=== PATIENT | female | born 1945 | race Caucasian/White ===

== ENCOUNTER 2020-04-23 12:45 | Emergency (ER) | payer OTHER ==
[~2020-04-23] VITALS: Ht 157.5 cm; Wt 54.4 kg
[~2020-04-23 12:45] MED LIST: CIPRO500 MG PO; COZAAR 25 MG TA25 M1 PO; ERYTHROMYCIN E3.5 G1 OPHTHALMIC; FERROUS SULFAT325 MG PO; FLAGYL500 MG PO; HYDROCODONE-APA1 TA1 PO; LISINOPRIL10 MG PO; TETRACAINE HCL OPHTHALMIC
[2020-04-23] MEDS ORDERED: TOPROL XL25 MG PO (13:06)
[2020-04-23] MEDS ORDERED: ZESTRIL20 MG PO (13:07)
[2020-04-23 13:22] LABS: URINE BILIRUBIN NEGATIVE (Negative); URINE BLOOD NEGATIVE (Negative); URINE CLARITY CLEAR; URINE COLOR YELLOW; URINE GLUCOSE-RANDOM 1+ (Negative); URINE KETONES TRACE (Negative); URINE LEUKOCYTES-REFLEX TRACE (Negative); URINE PROTEIN 2+ (Negative)
[2020-04-23 13:27] LABS: URINE NITRITE-REFLEX POSITIVE (Negative)
[2020-04-23 13:37] LABS: HEMOGLOBIN 12.9 gm/dL (12.0-15.0); MCH 33.4 pg (26.0-34.0); MCV 98.3 fL (80.0-100.0); MPV 7.7 fl. (7.2-11.1); NUCLEATED RBCS 0 /100WBC; PLATELET COUNT* 246 thou/uL (150-400); RBC 3.86 mil/uL (4.20-5.00); RDW-CV 13.2 % (10.5-14.5); WBC 10.9 thou/uL (4.0-11.0)
[2020-04-23 13:39] LABS: AMORPHOUS URATES Few /LPF (None Seen); BACTERIA-REFLEX 1-9 Few /HPF (None Seen); FINE GRANULAR CASTS 0-3 Few /LPF (None Seen); SQUAMOUS >10 Many /LPF (0-3); URINE RBC 0-2 Rare /HPF (0-2); URINE WBC-REFLEX 0-5 Rare /HPF (0-5)
[2020-04-23 13:43] LABS: CALCIUM 9.6 mg/dL (8.5-10.1); CREATININE 1.3 mg/dL (0.6-1.3); POTASSIUM 4.3 mmol/L (3.5-5.1)
[2020-04-23 13:47] LABS: TOTAL BILIRUBIN 0.5 mg/dL (<0.1-1.0)
[2020-04-23 14:16] LABS: ABSOLUTE EOSINOPHILS 0.2 thou/uL (0.0-0.7); ABSOLUTE LYMPHOCYTES 0.1 thou/uL (0.8-5.3); ABSOLUTE MONOCYTES 0.3 thou/uL (0.0-1.2); ABSOLUTE NEUTROPHILS 10.2 thou/uL (1.6-8.1); PLATELET ESTIMATE ADEQUATE
[2020-04-23] MEDS ORDERED: PREDNISONE 20 M20 MG PO (15:00)
[2020-04-23] MEDS ORDERED: HYDROCODON-ACE1 EAC7 PO (15:00)
[2020-04-23] MEDS ORDERED: KEFLEX500 M1 PO (15:00)
[2020-04-23 15:39] VITALS: BP 154/63
== END 2020-04-23 15:41 | disposition home or self-care (01) ==
LOC: M.ERS 12:45
PROVIDERS: Nurse Practitioner Family
DX: N39.0 Urinary tract infection, site not specified (principal); M54.32 Sciatica, left side; M16.12 Unilateral primary osteoarthritis, left hip; I10 Essential (primary) hypertension; F17.210 Nicotine dependence, cigarettes, uncomplicated; Z90.710 Acquired absence of both cervix and uterus; Z79.899 Other long term (current) drug therapy